=== PATIENT | female | born 1965 | race Caucasian/White ===

== ENCOUNTER 2017-03-12 07:49 | Outpatient (CLI) | payer BC ==
[2017-03-12] MEDS ORDERED: Iopamidol 370 76% 100 ML VIAL ONE (13:56)
== END 2017-03-12 07:50 | disposition home or self-care (01) ==
LOC: BICCT 07:49
PROVIDERS: ATTEND Internal Medicine Hematology & Oncology
DX: C18.9 Malignant neoplasm of colon, unspecified (principal); C34.90 Malignant neoplasm of unspecified part of unspecified bronchus or lung; C78.7 Secondary malignant neoplasm of liver and intrahepatic bile duct; Z90.49 Acquired absence of other specified parts of digestive tract
CPT/HCPCS: 71260; 74177

== ENCOUNTER 2017-12-09 07:46 | Outpatient (CLI) | payer BC ==
--- NOTE | 2017-12-09 12:25 | CT ---
CHEST CT WITH CONTRAST ABDOMEN CT WITH CONTRAST PELVIC CT WITH CONTRAST: Date: 12/09/17 HISTORY: colon caner with pulmonary nodules COMPARISON: 03/12/17, 08/12/17. TECHNIQUE: Chest, abdomen, and pelvic CT performed with contrast. Reformatted images are submitted for interpret ation. FINDINGS: CHEST CT: No mediastinal mass, lymphadenopathy, or hematoma. Heart size within normal limits. No significant pe ricardial fluid. The thoracic and abdominal aorta have a normal caliber. There appears to be postsurgical change in the right upper lobe with a suture chain that is calcified . Right upper lobe opacity measures 3.5 x 2.5 cm (previously measuring 2.8 x 3.9 cm). Scarring in the posterior aspect of the right upper lobe is also noted. Middle lobe, right lower lobe, and left uppe r lobe have appropriate aeration. There is a focal nodular opacity in the lateral aspect of the left lower lobe measuring 1.4 x 0.5 cm (previously measuring 1.5 x 0.6 cm). There is no appreciable change . There are no new nodules in the left or right lung. Small pleural based opacity in the dependent po rtion of the left lower lobe likely represents an area of atelectasis. No pneumothorax or pleural effusion. Trachea and central bronchi are patent. ABDOMEN CT: There is postsurgical change compatible with a partial right liver resection. Stable hypodensities in the liver, less than 1.0 cm in size. Hypodensities cannot be further characterized, but are statisti peter favored to be cysts. No new hepatic lesions are appreciated. The pancreas, spleen, and adrenal glands are unremarkable. Symmetric enhancement of the kidneys. No obstructive uropathy. No mesenteric mass, lymphadenopathy, free air, or free fluid. Stable postsurgical changes compatible with a right hemicolectomy. Previously noted ventral abdominal wall defect has been repaired. There i s evidence of anterior mesh. There are postoperative changes in the ventral subcutaneous fat. No evid ence of bowel herniation. PELVIC CT: No mass, lymphadenopathy, free air, or free fluid. Uterus and adnexal structures are unremarkable. Ur inary bladder is unremarkable. There are no lytic or blastic lesions in the osseous structures. IMPRESSION: 1. Stable opacity in the right upper lobe with a linear density, within the opacity, suggesting post surgical change. 2. Stable nodular density in the lateral aspect of the left lower lobe, 3. Interval repair of ventral abdominal wall hernia. POS: [facility]
[2017-12-09] MEDS ORDERED: Iopamidol 370 76% 100 ML VIAL ONE (13:28)
== END 2017-12-09 07:47 | disposition home or self-care (01) ==
LOC: BICCT 07:46
PROVIDERS: ATTEND Internal Medicine Hematology & Oncology
DX: C18.9 Malignant neoplasm of colon, unspecified (principal); R91.8 Other nonspecific abnormal finding of lung field; J98.4 Other disorders of lung; Z98.890 Other specified postprocedural states
CPT/HCPCS: 71260; 74177

== ENCOUNTER 2018-08-06 13:35 | Outpatient (CLI) | payer BC ==
--- NOTE | 2018-08-06 08:56 | CT ---
CT CHEST AND ABDOMEN AND PELVIS WITH CONTRAST: COMPARISON: Previous exam from 12/09/2017. FINDINGS: Areas of lung parenchymal scarring seen in the right upper lobe. An area of soft tissue density seen in the left lower lobe (axial image #32), measuring 8 x 11 mm, king s not significantly changed since the previous comparison CT. No other definite lung parenchymal lesions or interval changes seen. No evidence of osseous lesion seen. The liver has had surgical changes in the right hepatic lobe. Cystic changes are seen in the left he patic lobe, which are stable. The spleen is unremarkable. The pancreas is unremarkable. Surgical pa are seen in the left periaortic region. A midline surgical incision is seen. IMPRESSION: Stable CT appearance of the chest, abdomen, and pelvis with no newly developed lesions seen. Transcribed Date/Time: 08/06/2018 9:13 AM
== END 2018-08-06 13:36 | disposition home or self-care (01) ==
LOC: BICCT 13:35
PROVIDERS: ATTEND Internal Medicine Hematology & Oncology
DX: C18.9 Malignant neoplasm of colon, unspecified (principal); R91.8 Other nonspecific abnormal finding of lung field
CPT/HCPCS: 71260; 74177

== ENCOUNTER 2018-11-24 08:20 | Outpatient (CLI) | payer BC ==
--- NOTE | 2018-12-01 15:55 | MMO ---
Bilateral MAMMO Bilat Screen [facility]. CLINICAL HISTORY: Patient is 53 years old and is seen for screening. The patient has the following family history of breast cancer: maternal grandmother and paternal grandmother. The patient has a history of colon cancer; liver cancer and lung cancer. VIEWS: The views performed were: bilateral craniocaudal with tomosynthesis and bilateral mediolateral oblique with tomosynthesis. FILMS COMPARED: The present examination has been compared to prior imaging studies performed at This study has been interpreted with the assistance of computer-aided detection. MAMMOGRAM FINDINGS: There are scattered fibroglandular densities. There are stable benign appearing calcifications seen in the right breast. There are no suspicious masses, suspicious calcifications, or new areas of architectural distortion. IMPRESSION: THERE IS NO MAMMOGRAPHIC EVIDENCE OF MALIGNANCY. A ROUTINE FOLLOW-UP MAMMOGRAM IN 1 YEAR IS RECOMMENDED. THE RESULTS OF THIS EXAM WERE SENT TO THE PATIENT. ACR BI-RADS Category 2 - Benign finding MAMMOGRAPHY NOTE: 1. A negative mammogram report should not delay a biopsy if a dominant of clinically suspicious mass is present. 2. Approximately 10% to 15% of breast cancers are not detected by mammography. 3. Adenosis and dense breasts may obscure an underlying neoplasm. Reported by: KUSUM MARTINEZ MD Electonically Signed: [id number]
== END 2018-11-24 08:21 | disposition home or self-care (01) ==
LOC: BICMAMMO 08:20
PROVIDERS: ATTEND Internal Medicine
DX: Z12.31 Encounter for screening mammogram for malignant neoplasm of breast (principal); Z80.3 Family history of malignant neoplasm of breast; Z85.118 Personal history of other malignant neoplasm of bronchus and lung; Z85.05 Personal history of malignant neoplasm of liver; Z85.038 Personal history of other malignant neoplasm of large intestine
CPT/HCPCS: 77063; 77067

== ENCOUNTER 2019-03-09 15:32 | Emergency (ER) | payer BC ==
[2019-03-09 16:18] LABS: #Eosinphils 0.1 thou/uL (0.0-0.7); #Lymphocytes 2.1 thou/uL (1.20-3.40); #Monocytes 0.4 thou/uL (0.11-0.59); #Neutrophils 3.3 thou/uL (1.40-6.50); %Basophils 0.5 % (0.0-1.0); %Eosinophils 1.1 % (0.0-10.0); %Monocytes 7.5 % (0.0-10.0); Hemoglobin 13.1 g/dL (12.0-16.0); Mean Corpuscular HGB CONC 33.6 g/dL (32.0-36.0); Mean Corpuscular Hemoglobin 30.5 pg (27.0-31.0); Mean Platelet Volume 8.1 fL (7.4-10.4); Platelet Count 246 thou/uL (130-400); RBC Distribution Width 12.1 % (11.5-14.5); Red Blood Cell (RBC) Count 4.28 mill/uL (4.20-5.40); White Blood Cell (WBC) Count 5.9 thou/uL (4.8-10.8)
--- NOTE | 2019-03-09 16:20 | RAD ---
EXAM: CHEST ONE VIEW HISTORY: Irregular heartbeat. Intermittent chest pain. COMPARISON: CT thorax on 08/06/2018. FINDINGS: The cardiac silhouette and pulmonary vasculature is within normal limits. There is irregular nodular density seen overlying the right hilar region with radiopaque suture material seen in this region. This is a stable finding compared to CT thorax on 08/06/2018. The nodular density seen in the left low er lobe on CT examination is not well appreciated on this exam. No new area of consolidation or pleural fluid is seen. No suspicious osseous lesion is appreciated. IMPRESSION: 1. No acute cardiopulmonary process. 2. Stable nodular irregularity right hilar region with associated radiopaque suture material.
[2019-03-09 16:36] LABS: ALT (SGPT) 35 U/L (8-55); AST (SGOT) 24 U/L (5-34); Albumin 4.1 g/dL (3.5-5.0); Alkaline Phosphatase 66 U/L (40-110); Anion Gap 11 mmol/L (10-20); BUN (Urea Nitrogen) 12 mg/dL (9.8-20.1); Bilirubin, Total 0.5 mg/dL (0.2-1.2); Calc. Creatinine Clearance 0 mL/min (70-130); Calcium 9.5 mg/dL (7.8-10.44); Carbon Dioxide 29 mmol/L (22-29); Chloride 105 mmol/L (98-107); Estimated GFR-MDRD 87; Globulin 3.2 g/dL (2.4-3.5); Glucose 95 mg/dL (70-105); Potassium 3.7 mmol/L (3.5-5.1); Protein, Total 7.3 g/dL (6.0-8.3); Sodium 141 mmol/L (136-145)
== END 2019-03-09 17:25 | disposition home or self-care (01) ==
LOC: ERS 15:32
DX: R00.2 Palpitations (principal); R00.0 Tachycardia, unspecified; I49.9 Cardiac arrhythmia, unspecified; Z87.891 Personal history of nicotine dependence; Z79.899 Other long term (current) drug therapy
CPT/HCPCS: 71045; 80053; 84443; 84484; 85025; 93005; 94760

== ENCOUNTER 2019-12-08 15:11 | Outpatient (CLI) | payer BC ==
--- NOTE | 2019-12-08 16:11 | MMO ---
Bilateral MAMMO Bilat Screen [facility]. CLINICAL HISTORY: Patient is 54 years old and is seen for screening. The patient has the following family history of breast cancer: maternal grandmother and paternal grandmother. The patient has a history of colon cancer; liver cancer and lung cancer. VIEWS: The views performed were: bilateral craniocaudal with tomosynthesis and bilateral mediolateral oblique with tomosynthesis. FILMS COMPARED: The present examination has been compared to prior imaging studies performed at and at [facility] on 11/24/2018. This study has been interpreted with the assistance of computer-aided detection. MAMMOGRAM FINDINGS: There are scattered fibroglandular densities. There are no suspicious masses, suspicious calcifications, or new areas of architectural distortion. IMPRESSION: THERE IS NO MAMMOGRAPHIC EVIDENCE OF MALIGNANCY. A ROUTINE FOLLOW-UP MAMMOGRAM IN 1 YEAR IS RECOMMENDED. THE RESULTS OF THIS EXAM WERE SENT TO THE PATIENT. ACR BI-RADS Category 1 - Negative MAMMOGRAPHY NOTE: 1. A negative mammogram report should not delay a biopsy if a dominant of clinically suspicious mass is present. 2. Approximately 10% to 15% of breast cancers are not detected by mammography. 3. Adenosis and dense breasts may obscure an underlying neoplasm. Reported by: PONCHO VINSON MD Electonically Signed: [id number]
== END 2019-12-08 15:12 | disposition home or self-care (01) ==
LOC: BICMAMMO 15:11
PROVIDERS: ATTEND Internal Medicine
DX: Z12.31 Encounter for screening mammogram for malignant neoplasm of breast (principal); Z80.3 Family history of malignant neoplasm of breast; Z85.038 Personal history of other malignant neoplasm of large intestine; Z85.05 Personal history of malignant neoplasm of liver; Z85.118 Personal history of other malignant neoplasm of bronchus and lung
CPT/HCPCS: 77063; 77067

== ENCOUNTER 2020-01-04 10:58 | Outpatient (CLI) | payer BC ==
[~2020-01-04 10:58] MED LIST: Iopamidol-370 76% 500 ML 1 ML ONE
--- NOTE | 2020-01-04 11:49 | CT ---
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 FINDINGS: CHEST: Lungs: The irregular, partially calcified mass with surrounding scarring in the anterior segment of t he right upper lobe is relatively stable in size measuring 3.0 x 1.8 cm. Small area of scarring within the anterolateral segment of the right lower lobe is stable. 1.4 cm noncalcified pulmonary nod ule within the superior left lower lobe on image 32 series 3 is stable. No new pulmonary nodule is identified. Pleural space: No effusion. Mediastinum: No pathologically enlarged lymph nodes are evident. Axilla: No pathologically enlarged lymph nodes. ABDOMEN: Liver: There is postsurgical change of a right hepatectomy. Small subcentimeter hypodensities are sta ble within the residual liver suspicious for tiny cysts. No new suspicious hepatic lesion is identified. Gallbladder: Surgically absent Pancreas: Normal. Adrenal glands: Normal. Spleen: Normal. Kidneys and ureters: Normal. No hydronephrosis. Vasculature: Normal. Lymph nodes:No lymphadenopathy. Free fluid in abdomen:No free fluid is evident. PELVIS: Small and large bowel: There is postsurgical change of a partial colectomy and ileocolonic anastomosi s in the right lower quadrant of the abdomen. This also postprocedural change of an anterior abdominal wall hernia repair. The small and large bowel are of normal caliber. Appendix:Not definitely seen. Bladder: Normal. Rectal and perirectal soft tissues:Normal. Reproductive structures: Normal. Free fluid in pelvis: No free fluid is evident. Lymphadenopathy pelvis: No lymphadenopathy is evident. Osseous structures: No acute osseous abnormality. No destructive osteolytic or osteoblastic lesion i s identified. There is scattered degenerative and osteoarthritic changes. Soft tissues:Normal. IMPRESSION: 1. Stable right upper lobe pulmonary masslike scar. Stable left lower lobe noncalcified pulmonary nod ule. 2. Stable postsurgical changes of the abdomen without evidence of recurrent primary malignancy or met astatic disease in the abdomen or pelvis
== END 2020-01-04 10:59 | disposition home or self-care (01) ==
LOC: BICCT 10:58
PROVIDERS: ATTEND Internal Medicine Hematology & Oncology
DX: C18.9 Malignant neoplasm of colon, unspecified (principal); C78.39 Secondary malignant neoplasm of other respiratory organs; R91.8 Other nonspecific abnormal finding of lung field; R91.1 Solitary pulmonary nodule; Z98.890 Other specified postprocedural states
CPT/HCPCS: 71260; 74177; Q9967

== ENCOUNTER 2020-07-04 10:50 | Outpatient (CLI) | payer BC | END 2020-07-04 10:51 | disposition home or self-care (01) | LOC: BICRAD 10:50 | PROVIDERS: ATTEND Internal Medicine | DX: M79.641 Pain in right hand (principal); M25.531 Pain in right wrist ==

== ENCOUNTER 2021-01-02 07:26 | Outpatient (CLI) | payer BC ==
[2021-01-02] MEDS ORDERED: Iopamidol-370 76% 500 ML 1 ML ONE (10:24)
== END 2021-01-02 07:27 | disposition home or self-care (01) ==
LOC: BICCT 07:26
PROVIDERS: ATTEND Internal Medicine Hematology & Oncology
DX: C78.39 Secondary malignant neoplasm of other respiratory organs (principal); C18.5 Malignant neoplasm of splenic flexure; R91.8 Other nonspecific abnormal finding of lung field; Z98.890 Other specified postprocedural states
CPT/HCPCS: 71260; 74177

== ENCOUNTER 2021-02-08 14:11 | Outpatient (CLI) | payer BC | END 2021-02-08 14:12 | disposition home or self-care (01) | LOC: BICMAMMO 14:11 | PROVIDERS: ATTEND Internal Medicine | DX: Z12.31 Encounter for screening mammogram for malignant neoplasm of breast (principal); Z80.3 Family history of malignant neoplasm of breast; N63.10 Unspecified lump in the right breast, unspecified quadrant | CPT/HCPCS: 77063; 77067 ==

== ENCOUNTER 2021-02-09 12:19 | Outpatient (CLI) | payer BC | END 2021-02-09 12:20 | disposition home or self-care (01) | LOC: BICULT 12:19 | PROVIDERS: ATTEND Internal Medicine | DX: R92.8 Other abnormal and inconclusive findings on diagnostic imaging of breast (principal) ==

== ENCOUNTER 2022-01-08 10:07 | Outpatient (CLI) | payer BC ==
[~2022-01-08 10:07] MED LIST changes: +Iopamidol 370 76% 100 ML VIAL ONE; -Iopamidol-370 76% 500 ML 1 ML ONE
== END 2022-01-08 10:08 | disposition home or self-care (01) ==
LOC: BICCT 10:07
PROVIDERS: ATTEND Internal Medicine Hematology & Oncology
DX: C18.9 Malignant neoplasm of colon, unspecified (principal); C78.39 Secondary malignant neoplasm of other respiratory organs; R91.1 Solitary pulmonary nodule; K76.9 Liver disease, unspecified; R91.8 Other nonspecific abnormal finding of lung field; Z98.890 Other specified postprocedural states; Z90.49 Acquired absence of other specified parts of digestive tract
CPT/HCPCS: 71260; 74177; Q9967

== ENCOUNTER 2022-03-05 09:25 | Outpatient (CLI) | payer BC | END 2022-03-05 09:26 | disposition home or self-care (01) | LOC: BICRAD 09:25 | PROVIDERS: ATTEND Internal Medicine | DX: M25.552 Pain in left hip (principal) ==

== ENCOUNTER 2022-04-27 10:12 | Outpatient (CLI) | payer BC | END 2022-04-27 10:13 | disposition home or self-care (01) | LOC: BICMAMMO 10:12 | PROVIDERS: ATTEND Internal Medicine Hematology & Oncology | DX: Z12.31 Encounter for screening mammogram for malignant neoplasm of breast (principal); Z80.3 Family history of malignant neoplasm of breast | CPT/HCPCS: 77063; 77067 ==

== ENCOUNTER 2022-08-29 13:43 | Outpatient (CLI) | payer BC | END 2022-08-29 13:44 | disposition home or self-care (01) | LOC: SCSRAD 13:43 | PROVIDERS: ATTEND Internal Medicine | DX: M51.16 Intervertebral disc disorders with radiculopathy, lumbar region (principal); M25.551 Pain in right hip | CPT/HCPCS: 72100 ==

== ENCOUNTER 2023-03-25 08:33 | Outpatient (CLI) | payer BC ==
[2023-03-25] MEDS ORDERED: Iopamidol-370 76% 500 ML MDV (1 ML CHARGE) ONE (11:46)
== END 2023-03-25 08:34 | disposition home or self-care (01) ==
LOC: BICCT 08:33
PROVIDERS: ATTEND Internal Medicine Hematology & Oncology
DX: C18.9 Malignant neoplasm of colon, unspecified (principal); C78.39 Secondary malignant neoplasm of other respiratory organs; R91.8 Other nonspecific abnormal finding of lung field; K76.89 Other specified diseases of liver; Z98.890 Other specified postprocedural states
CPT/HCPCS: 71260; 74177; Q9967

== ENCOUNTER 2023-05-14 14:50 | Outpatient (CLI) | payer BC | END 2023-05-14 14:51 | disposition home or self-care (01) | LOC: BICMAMMO 14:50 | PROVIDERS: ATTEND Internal Medicine | DX: Z12.31 Encounter for screening mammogram for malignant neoplasm of breast (principal); Z80.3 Family history of malignant neoplasm of breast; Z85.038 Personal history of other malignant neoplasm of large intestine; Z85.05 Personal history of malignant neoplasm of liver; Z85.118 Personal history of other malignant neoplasm of bronchus and lung | CPT/HCPCS: 77063; 77067 ==

== ENCOUNTER 2024-01-02 07:02 | Day surgery (SDC) | payer BC ==
[2023-12-19 13:42] VITALS: BMI 28.5
[2024-01-02] MEDS ORDERED: Ondansetron PF 4 MG/2 ML Vial ONE (07:20)
[2024-01-02] MEDS ORDERED: PROPOFOL 20 ML ONE (07:20)
[2024-01-02] MEDS ORDERED: Lidocaine 1% PF 5 ML VIAL ONE (07:20)
[2024-01-02] MEDS ORDERED: Dexamethasone 20 MG/5 ML VIAL ONE (07:20)
[2024-01-02] MEDS ORDERED: Rocuronium Bromide 10 MG/ML (10ML VIAL) ONE (07:20)
[2024-01-02] MEDS ORDERED: Glycopyrrolate 0.2 MG/ML 5 ML SYRINGE ONE (07:46)
[2024-01-02] MEDS ORDERED: PROPOFOL 40 ML ONE (09:11)
[2024-01-02] MEDS ORDERED: Midazolam HCl 2 mg/2 ml Vial ONE (09:16)
[2024-01-02] MEDS ORDERED: Dexmedetomidine 200 MCG/2 ML VIAL ONE (09:16)
[2024-01-02] MEDS ORDERED: Sodium Chloride 0.9% 100 ML ONE (09:17)
[2024-01-02] MEDS ORDERED: fentaNYL 50 mcg/mL 1 mL Vial ONE ×2 (09:18→10:00)
[2024-01-02] MEDS ORDERED: CEFAZOLIN 2 GM VIAL ONE (09:19)
[2024-01-02] MEDS ORDERED: Bupivacaine 0.25% HCL 30 ML VIAL ONE (10:00)
== END 2024-01-02 13:10 | disposition home or self-care (01) ==
LOC: SDC 07:02
PROVIDERS: ATTEND Urology
PROC: 0JH63BZ Insertion of Single Array Stimulator Generator into Chest Subcutaneous Tissue and Fascia, Percutaneous Approach (ICD-10-PCS; principal; 2024-01-02)
DX: N32.81 Overactive bladder (principal); N39.41 Urge incontinence
CPT/HCPCS: 72220; C1897; J0665; J1100; J2250; J2405; J2704; J3010

== ENCOUNTER 2024-03-04 22:16 | Inpatient (IN) | payer BC ==
[2024-03-04] MEDS ORDERED: Acetaminophen 325 MG TAB PO PRN (23:54)
[2024-03-04] MEDS ORDERED: Nitroglycerin 0.4 MG TAB (25 Tab Bottle) SL PRN (23:54)
[2024-03-04] MEDS ORDERED: Ondansetron PF 4 MG/2 ML Vial IVP PRN (23:54)
[2024-03-05 00:24] VITALS: BMI 30.7
[2024-03-05 00:57] LABS: Troponin I Less than 0.010 ng/mL (< 0.028)
[2024-03-05 05:03] LABS: #Basophils 0.04 10x3/uL (0.0-0.2); %Basophils 0.5 % (0.0-1.0); %Eosinophils 1.6 % (0.0-10.0); %Lymphocytes 47.1 % (21.0-51.0); %Monocytes 9.1 % (0.0-10.0); %Neutrophils 40.9 % (42.0-75.0); Hematocrit 36.7 % (36.0-47.0); Hemoglobin 11.9 g/dL (12.0-16.0); Mean Corpuscular HGB CONC 32.4 g/dL (32.0-36.0); Mean Corpuscular Hemoglobin 28.5 pg (27.0-31.0); Mean Platelet Volume 9.9 fL (7.4-10.4); Platelet Count 334 10x3/uL (130-400); RBC Distribution Width 13.2 % (11.5-14.5); Red Blood Cell (RBC) Count 4.17 mill/uL (4.20-5.40)
[2024-03-05 05:36] LABS: Anion Gap 9 mmol/L (10-20); BUN (Urea Nitrogen) 14 mg/dL (9.8-20.1); Calc. Creatinine Clearance 165 mL/min (70-130); Calcium 8.2 mg/dL (7.8-10.44); Carbon Dioxide 25 mmol/L (22-29); Cardiac Risk 2.8 (Less than 4.5); Chloride 110 mmol/L (98-107); Cholesterol 114 mg/dl (< 200 Desired); Estimated GFR 103; Glucose 90 mg/dL (70-105); HDL Cholesterol 41 mg/dL (>60 Neg Risk); LDL Cholesterol, Calculated 60 mg/dL; Sodium 140 mmol/L (136-145); Triglycerides 66 mg/dL (Less than 150); Troponin I Less than 0.010 ng/mL (< 0.028)
[2024-03-05] MEDS ORDERED: Regadenoson 0.4 MG/5 ML SYRINGE ONE (09:46)
[2024-03-05] MEDS: Enoxaparin 40 MG (0.4 mL) SYRINGE SC SCH (11:16)
[2024-03-05] MEDS: Aspirin 81 mg Enteric Coated Tablet PO SCH (15:00)
[2024-03-05] MEDS ORDERED: Communication Order-Pharmacy FS PRN (16:45)
[2024-03-06 05:10] LABS: #Basophils 0.03 10x3/uL (0.0-0.2); %Basophils 0.4 % (0.0-1.0); %Eosinophils 1.7 % (0.0-10.0); %Lymphocytes 39.8 % (21.0-51.0); %Monocytes 12.4 % (0.0-10.0); %Neutrophils 45.1 % (42.0-75.0); Hematocrit 39.8 % (36.0-47.0); Hemoglobin 12.8 g/dL (12.0-16.0); Mean Corpuscular HGB CONC 32.2 g/dL (32.0-36.0); Mean Corpuscular Hemoglobin 28.1 pg (27.0-31.0); Mean Corpuscular Volume 87.5 fL (78.0-98.0); Mean Platelet Volume 9.3 fL (7.4-10.4); Platelet Count 360 10x3/uL (130-400); RBC Distribution Width 13.1 % (11.5-14.5); Red Blood Cell (RBC) Count 4.55 mill/uL (4.20-5.40)
[2024-03-06 05:33] LABS: Anion Gap 9 mmol/L (10-20); BUN (Urea Nitrogen) 11 mg/dL (9.8-20.1); Calc. Creatinine Clearance 165 mL/min (70-130); Carbon Dioxide 25 mmol/L (22-29); Chloride 107 mmol/L (98-107); Estimated GFR 103; Glucose 102 mg/dL (70-105); Potassium 3.9 mmol/L (3.5-5.1); Sodium 137 mmol/L (136-145)
[2024-03-06] MEDS: Levothyroxine Sodium 75 MCG TAB PO SCH (05:34)
[2024-03-06] MEDS: Sodium Chloride 0.9% 1,000 ML IV SCH (05:34)
[2024-03-06] MEDS: Aspirin 81 mg Enteric Coated Tablet PO SCH (08:29)
[2024-03-06] MEDS: Venlafaxine XR 37.5 MG CAP PO SCH (08:29)
[2024-03-06] MEDS ORDERED: Heparin 10,000 UNITS/ 10 ML VIAL ONE (09:05)
[2024-03-06] MEDS ORDERED: Verapamil 5 MG/2 ML VIAL ONE (09:05)
[2024-03-06] MEDS ORDERED: Nitroglycerin 50 MG/250 ML BOT 250 ML ONE (09:05)
[2024-03-06] MEDS ORDERED: fentaNYL 50 mcg/mL 1 mL Vial ONE ×2 (09:27→09:43)
[2024-03-06] MEDS ORDERED: Midazolam HCl 2 mg/2 ml Vial ONE (09:27)
[2024-03-06] MEDS ORDERED: Sodium Chloride 0.9% 200 ML IV PRN (09:59)
[2024-03-06] MEDS ORDERED: Acetaminophen/Codeine 30-300mg Tablet PO PRN (09:59)
[2024-03-06] MEDS: Sodium Chloride 0.9% 500 ML IV SCH (11:27)
[2024-03-06] MEDS ORDERED: Iopamidol 370 76% 100 ML VIAL ONE ×2 (11:27→15:26)
[2024-03-06 12:10] VITALS: BP 132/65; TEMP 97.9
[2024-03-06] MEDS ORDERED: Venlafaxine XR 37.5 MG CAP PO SCH (21:00)
== END 2024-03-06 15:38 | disposition home or self-care (01) | DRG 287 ==
LOC: OBS 23:12 → OBSVTOIN 03-05 15:35
PROVIDERS: ADMIT Internal Medicine; ATTEND Family Medicine
PROC: 4A023N7 Measurement of Cardiac Sampling and Pressure, Left Heart, Percutaneous Approach (ICD-10-PCS; principal; 2024-03-05)
PROC: B2111ZZ Fluoroscopy of Multiple Coronary Arteries using Low Osmolar Contrast (ICD-10-PCS; 2024-03-05)
PROC: B2151ZZ Fluoroscopy of Left Heart using Low Osmolar Contrast (ICD-10-PCS; 2024-03-05)
DX: R07.89 Other chest pain (principal); R00.0 Tachycardia, unspecified; E03.9 Hypothyroidism, unspecified; F10.90 Alcohol use, unspecified, uncomplicated; Z88.8 Allergy status to other drugs, medicaments and biological substances; Z86.79 Personal history of other diseases of the circulatory system; Z85.038 Personal history of other malignant neoplasm of large intestine; Z85.05 Personal history of malignant neoplasm of liver; Z85.118 Personal history of other malignant neoplasm of bronchus and lung; Z92.3 Personal history of irradiation; Z90.49 Acquired absence of other specified parts of digestive tract; Z98.890 Other specified postprocedural states; Z87.891 Personal history of nicotine dependence; Z88.2 Allergy status to sulfonamides; Z79.899 Other long term (current) drug therapy
CPT/HCPCS: 36415; 71275; 74174; 78452; 80048; 80061; 85025; 93017; 93306; 93458; 94760; 99152; A9502; C1769; C1887; C1894; G0378; J1644; J2250; J2785; J3010; Q9967

== ENCOUNTER 2024-11-24 09:57 | Outpatient (CLI) | payer BC | END 2024-11-24 09:58 | disposition home or self-care (01) | LOC: RAD 09:57 | PROVIDERS: ATTEND Internal Medicine Critical Care Medicine | DX: R06.00 Dyspnea, unspecified (principal) | CPT/HCPCS: 71046 ==

== ENCOUNTER 2024-12-31 13:45 | Outpatient (CLI) | payer BC | END 2024-12-31 13:46 | disposition home or self-care (01) | LOC: BICMAMMO 13:45 | PROVIDERS: ATTEND Internal Medicine | DX: Z12.31 Encounter for screening mammogram for malignant neoplasm of breast (principal); Z13.820 Encounter for screening for osteoporosis; M81.0 Age-related osteoporosis without current pathological fracture; Z80.3 Family history of malignant neoplasm of breast; Z85.038 Personal history of other malignant neoplasm of large intestine; Z85.05 Personal history of malignant neoplasm of liver; Z85.118 Personal history of other malignant neoplasm of bronchus and lung | CPT/HCPCS: 77063; 77067; 77080 ==